=== PATIENT | female | born 1970 | race American Indian/Alaskan Native ===

== ENCOUNTER 2017-11-15 10:22 | Observation (INO) | payer OTHER ==
[2017-11-14 13:27] LABS: Mean Corpuscular HGB Conc 30 % (30-34); Platelet Count 250 K/mm3 (140-440); Red Blood Count 5.59 M/mm3 (3.65-5.03); White Blood Count 6.9 K/mm3 (4.5-11.0)
[2017-11-14 13:41] LABS: Hematocrit 36.4 % (30.3-42.9); Hemoglobin 10.8 gm/dl (10.1-14.3); Mean Corpuscular Hemoglobin 19 pg (28-32); Mean Corpuscular Volume 65 fl (79-97); Red Cell Distribution Width 27.7 % (13.2-15.2)
--- NOTE | 2017-11-15 11:08 | History and Physical Report ---
History of Present Illness Date of examination: 11/15/17 Date of admission: 11/15/2017 Chief complaint: heavy menses and pain History of present illness: 47y/o with symptomatic uterine fibroids and pelvic pain. The patient reports worsening of symptoms. She complains of heavy bleeding with menses and pain. Treatment options were discussed with patient. 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 Social history: - Obstetrical History : 7 Para: 4 Hx # Term Pregnancies: 4 Number of Pregnancies: 0 Spontaneous Abortions: 3 Induced : 0 Number of Living Children: 4 Medications and Allergies Allergies Allergy/AdvReac Type Severity Reaction Status Date / Time No Known Allergies Allergy Unverified 11/14/17 12:52 Home Medications Medication Instructions Recorded Confirmed Last Taken Type Biotin 10,000 mcg PO DAILY 11/14/17 11/14/17 Unknown History Ferrous Sulfate [Feosol 325 MG tab] 1 tab PO DAILY 11/14/17 11/14/17 Unknown History Folic Acid [Folvite] 1 mg PO DAILY 11/14/17 11/14/17 Unknown History Losartan Potassium [Losartan 50 mg PO DAILY 11/14/17 11/14/17 Unknown History Potassium] [place]-3 Fatty Acids/Fish Oil [Fish 1,000 mg PO DAILY 11/14/17 11/14/17 Unknown History Oil] Ubidecarenone [Coenzyme Q-10] 1 cap PO DAILY 11/14/17 11/14/17 Unknown History Review of Systems All systems: negative Genitourinary: vaginal bleeding, pelvic pain - Vital Signs Vital signs: Vital Signs Temp Pulse Resp BP 98.5 F 80 18 130/84 11/14/17 12:45 11/14/17 12:45 11/14/17 12:45 11/14/17 12:45 Temp Pulse Resp BP Pulse Ox 98.5 F 80 18 130/84 11/14/17 12:45 11/14/17 12:45 11/14/17 12:45 11/14/17 12:45 - Physical Exam Breasts: Positive: deferred Cardiovascular: Regular rate Lungs: Positive: Clear to auscultation Abdomen: Positive: normal appearance Results Result Diagrams: 11/14/17 13:00 Abnormal lab results 11/14/17 Range/Units 13:00 RBC 5.59 H (3.65-5.03) M/mm3 MCV 65 L (79-97) fl MCH 19 L (28-32) pg RDW 27.7 H (13.2-15.2) % All other labs normal. Assessment and Plan - Patient Problems (1) Leiomyoma Current Visit: Yes Status: Acute Plan to address problem: scheduled for a robotic hysterectomy (2) Menorrhagia Current Visit: Yes Status: Acute (3) Dysmenorrhea Current Visit: Yes Status: Acute
[2017-11-15] MEDS ORDERED: DECADRON IV SCH (11:47)
[2017-11-15] MEDS ORDERED: SUBLIMAZE IV ONE (11:47)
[2017-11-15] MEDS ORDERED: LACTATED RINGERS 1,000 ML IV SCH (12:00)
[2017-11-15] MEDS ORDERED: PEPCID PO NR (12:00)
[2017-11-15] MEDS ORDERED: NEURONTIN PO NR (12:00)
[2017-11-15] MEDS ORDERED: MARCAINE 0.5% INFILTRATI NR (12:00)
[2017-11-15] MEDS ORDERED: MARCAINE 0.5% 60 ML INFILTRATI ONE (12:18)
[2017-11-15] MEDS ORDERED: ADRENALIN ONE (12:18)
[2017-11-15] MEDS ORDERED: ZOFRAN IV PRN (12:29)
[2017-11-15] MEDS ORDERED: MORPHINE IV PRN (12:29)
--- NOTE | 2017-11-15 12:29 | Anesthesia Day of Surgery ---
Anesthesia Day of Surgery - Day of Surgery Patient Examined: Yes Patient H&P Reviewed: Yes Patient is NPO: Yes
--- NOTE | 2017-11-15 12:29 | Anesthesia Consultation ---
Anesthesia Consult and Med Hx Date of service: 11/15/17 - Airway Anesthetic Teeth Evaluation: Good ROM Head & Neck: Adequate Mental/Hyoid Distance: Adequate Mallampati Class: Class II Intubation Access Assessment: Probably Good - Pulmonary Exam CTA: Yes - Cardiac Exam Cardiac Exam: RRR - Pre-Operative Health Status ASA Pre-Surgery Classification: ASA2 Proposed Anesthetic Plan: General Nerve Block: TAP - Cardiovascular System Hx Hypertension: Yes (since 2011) - Central Nervous System Hx Psychiatric Problems: No - Hematic Hx Anemia: Yes - Other Systems Hx Cancer: No
[2017-11-15] MEDS: VERSED IV PRN ×2 (12:41→12:50)
[2017-11-15] MEDS ORDERED: GELFOAM POWDER 1GM MM ONE (13:57)
[2017-11-15] MEDS ORDERED: THROMBIN (BOVINE) TP ONE (13:57)
[2017-11-15] MEDS ORDERED: ANCEF/STERILE WATER 2 GM/20 ML 2 GM/20 ML SYRINGE IV SCH (14:00)
[2017-11-15] MEDS ORDERED: DIPRIVAN 10 MG/ML IV ONE (14:30)
[2017-11-15] MEDS ORDERED: DILAUDID ONE (14:30)
[2017-11-15] MEDS ORDERED: ZOFRAN ONE (14:30)
[2017-11-15] MEDS ORDERED: XYLOCAINE MPF 2% ONE (14:30)
[2017-11-15] MEDS ORDERED: DECADRON ONE (14:30)
[2017-11-15] MEDS ORDERED: ROBINUL ONE (14:30)
[2017-11-15] MEDS ORDERED: ZEMURON IV ONE (14:30)
[2017-11-15] MEDS ORDERED: NEOSTIGMINE ONE (14:30)
[2017-11-15] MEDS ORDERED: NEOSPORIN GU IR ONE (15:10)
[2017-11-15] MEDS ORDERED: NARCAN 0.4 MG/1 ML IV PRN (17:18)
[2017-11-15] MEDS ORDERED: PERCOCET 5/325 PO PRN (17:19)
[2017-11-15] MEDS ORDERED: MILK OF MAGNESIA PO PRN (17:19)
[2017-11-15] MEDS ORDERED: MOTRIN PO PRN (17:19)
[2017-11-15] MEDS ORDERED: TYLENOL PO PRN (17:19)
--- NOTE | 2017-11-15 17:28 | Operative Report ---
Operative Report Operative Report: Date of surgery: 11/15/2017 Preoperative diagnoses: Leiomyomas; menorrhagia; dysmenorrhea Postoperative diagnoses: Same as above Procedure: Robotic hysterectomy; bilateral salpingectomy; left oophorectomy Surgeon: Tracey Ravi M.D. Medical Numerical Control Operator: Ricarda Boyce Anesthesia: Gen. endotracheal anesthesia Estimated blood loss: 200 mL Pathology: Uterus, cervix, leiomyomas, left ovary, bilateral tubes Indication: 47-year-old with a history of symptomatic uterine fibroids and a history of ovarian cyst. The patient elected to undergo definitive surgical management of her symptoms. Procedure: The patient was taken to the operating room and given general endotracheal anesthesia without complication. She is prepped and draped in a normal sterile fashion. A bivalve speculum was placed in the patient's vagina and a single- tooth tenaculum placed on the anterior lip of the cervix. The uterus was sounded with the uterine sound. A orderbolt uterine manipulator was placed in the bivalve speculum was then removed. Attention was then turned to the patient's abdomen where a millimeter supra umbilical skin incision was then made. A Veress needle was placed and peritoneal entry was verified water-filled syringe. Insufflation of the peritoneal cavity was performed with CO2 gas. The 12 mm trocar was then placed under direct visualization. An additional 8 mm trocar was placed on the patient's left and right lateral side just opposite of the supraumbilical trocar. An additional 5 mm right lateral trocar was then placed as the accessory port. The patient was then placed in steep Trendelenburg. The da Attila robot was then engaged. A fenestrated forcep was placed in arm 2 and a vessel sealer was placed in arm 1. The surgeon then transferred to the surgical console. General survey of the abdomen and pelvis revealed multiple uterine fibroids causing enlargement of the uterus. There was also findings of the left ovarian cyst. The mesosalpinx was then isolated on the right. The vessel sealer was used to coagulate the mesosalpinx which was then transected. The tube was transected from the ovary. The tubo-ovarian ligament was then coagulated and transected. The round ligament was then coagulated and transected also. The vesicouterine peritoneum was then entered from the patient's right side. The uterine vessels were then coagulated with the vessel sealer. The vessels were then transected . Attention was then turned to the patient's left side where the tubo-ovarian ligament and mesosalpinx were again isolated coagulated and transected. In the process of transecting the mesosalpinx it was noted that the blood supply to the ovary had been compromise. A left oophorectomy was then performed. The vesical peritoneum was then entered from the left and joined in the midline. Peritoneum was reflected off of the lower uterine segment. Uterine vessels were then coagulated and then transected. The blood supply to the uterus was adequately contained. Secondary to the large state of the uterus it could not be adequately transferred through the vagina without decompression. Myomectomy was performed to removed multiple fibroids in order to decompress the uterus. The serosa of the uterus was transected with the monopolar scissors. A posterior colpotomy was made. The V care ring was visualized. Posterior colpotomy was created with the monopolar scissors. The incision was continued circumferentially until anterior colpotomy was made. The cervix and uterus were amputated from the vaginal cuff. The uterus was then removed along with the tubes bilaterally, leiomyomas, and left ovary through the vagina and a warm laparotomy sponge was placed and maintain the pneumoperitoneum. The vaginal cuff was then closed in a running fashion with V lock suture. Irrigation of the pelvis was performed. Gelfoam with thrombin was applied to the incision. The supraumbilical 12 mm trocar site was closed with the Mario Nicole device. The skin was then reapproximated with 4-0 Monocryl. The tissue was sent to pathology which included the cervix and uterus. The patient was then successfully extubated. She was then taken to the recovery room in stable condition. All sponge laps and needle counts were correct x2.
[2017-11-15] MEDS ORDERED: D5LR 1,000 ML IV SCH (18:00)
[2017-11-15] MEDS ORDERED: MORPHINE PCA 30MG/30ML IV SCH (18:00)
[2017-11-15] MEDS ORDERED: LACTATED RINGERS 1,000 ML ONE (19:15)
--- NOTE | 2017-11-15 20:15 | Post Anesthesia Evaluation ---
- Post Anesthesia Evaluation Patient Participated: Yes Airway Patent: Yes Stable Respiratory Function: Yes Temp > 96.8F: Yes Pain Manageable: Yes Adequeate Hydration: Yes Anesthesia Complications: No
[2017-11-15] MEDS: TORADOL IV SCH (23:40)
[2017-11-16] MEDS: TORADOL IV SCH ×2 (05:05→11:38)
[2017-11-16 06:32] LABS: Hematocrit 33.6 % (30.3-42.9); Hemoglobin 10.4 gm/dl (10.1-14.3)
--- NOTE | 2017-11-16 08:45 | Progress Note ---
Assessment and Plan - Patient Problems (1) Leiomyoma Current Visit: Yes Status: Acute Plan to address problem: patient doing well discharge home once tolerates regular diet (2) Menorrhagia Current Visit: Yes Status: Acute (3) Dysmenorrhea Current Visit: Yes Status: Acute Subjective - Subjective Date of service: 11/16/17 Interval history: Patient without complaints. Tolerating clear diet. Pain well controlled. Patient reports: appetite normal, voiding normally, pain well controlled Objective - Vital Signs Latest vital signs: Vital Signs Temp Pulse Resp BP BP Pulse Ox 11/16/17 04:15 98.6 F 78 16 114/69 11/16/17 00:00 98.6 F 78 16 121/64 11/15/17 19:40 98.6 F 82 16 131/80 11/15/17 18:45 93 H 20 100 11/15/17 18:30 62 21 157/94 100 11/15/17 18:15 94 H 20 151/92 100 11/15/17 18:00 96 H 20 156/97 100 11/15/17 17:55 98 H 19 158/90 9 L 11/15/17 17:50 92 H 15 145/97 100 11/15/17 17:46 98.2 F 98 H 13 136/83 99 11/15/17 13:30 102 H 20 130/78 99 11/15/17 13:25 102 H 20 136/86 99 11/15/17 13:20 103 H 20 140/80 99 11/15/17 13:15 105 H 20 138/78 100 11/15/17 13:10 104 H 20 140/83 100 11/15/17 13:05 105 H 20 147/84 100 11/15/17 12:45 103 H 20 139/86 100 11/15/17 12:40 91 H 20 145/89 100 11/15/17 11:20 99.4 F 96 H 18 141/81 99 Intake and Output 11/15/17 11/16/17 11/16/17 22:59 06:59 14:59 Intake Total 600 300 Output Total 175 1700 Balance 425 -1400 Intake: IV 300 Intake, Free Water 300 300 Output: Urine 175 1700 Indwelling Catheter 1700 Other: Total, Output Amount 800 Voiding Method Indwelling Catheter - Exam Abdomen: Present: normal appearance, soft Incision: Present: dry
--- NOTE | 2017-11-16 08:46 | Progress Note ---
Subjective Date of service: 11/16/17 Interval history: 1st POD after robotic hysterectomy Patient is in the bed, comfortable. Pain is well controlled with pain meds. Ambulated well. No nausea or vomiting. No anesthesia complications Objective - Constitutional Vitals: Vital Signs - 12hr 11/16/17 11/16/17 00:00 04:15 Temperature 98.6 F 98.6 F Pulse Rate 78 78 Respiratory 16 16 Rate Blood Pressure 121/64 114/69 [Left] - Labs CBC & Chem 7: 11/16/17 06:05
--- NOTE | 2017-11-16 08:47 | Discharge Summary ---
Providers - Providers Date of Admission: 11/15/17 17:19 Date of discharge: 11/16/17 Attending physician: ROGER MERA Primary care physician: SONYA TRACEY Hospitalization Reason for admission: other (Uterine fibroids) Procedure: other (robotic hysterectomy) Discharge diagnosis: other (Uterine fibroids) Hospital course: Patient admitted the day of surgery and underwent a robotic hysterectomy for uterine fibroids. Please see operative report. Postoperative course uneventful. Condition at discharge: Good Disposition: DC-01 TO HOME OR SELFCARE - Discharge Diagnoses (1) Leiomyoma Status: Acute (2) Menorrhagia Status: Acute (3) Dysmenorrhea Status: Acute Plan - Discharge Medications Prescriptions: Ibuprofen [Motrin] 800 mg PO Q8HR PRN #60 tablet PRN Reason: Pain Oxycodone HCl/Acetaminophen [Percocet 7.5/325 mg] 1 each PO Q6HR PRN #45 tablet PRN Reason: Pain - Provider Discharge Summary Activity: no sex for 6 weeks, no heavy lifting 4 weeks, no strenuous exercise Diet: routine Instructions: routine Additional instructions: [] Smoking cessation referral if applicable(refer to patient education folder for contact #) [] Refer to [facility] Booklet Call your doctor immediately for: * Fever > 100.5 * Heavy vaginal bleeding ( >1 pad per hour) * Severe persistent headache * Shortness of breath * Reddened, hot, painful area to leg or breast * Drainage or odor from incision. * Keep incision clean and dry at all times and follow doctor's instructions regarding bathing/showering followup in [address] Fitzgerald - Follow up plan
[2017-11-16 11:16] VITALS: BP 147/86
== END 2017-11-16 12:27 | disposition home or self-care (01) ==
LOC: OR 10:22 → OB 17:19
PROVIDERS: ADMIT Obstetrics & Gynecology; ATTEND Obstetrics & Gynecology
DX: D25.9 Leiomyoma of uterus, unspecified (principal); N92.0 Excessive and frequent menstruation with regular cycle; N94.6 Dysmenorrhea, unspecified; I10 Essential (primary) hypertension
CPT/HCPCS: 36415; 58571; 64450; 84703; 85014; 85018; 85025; 86850; 86900; 86901; 88307; 96374; 96375; 96376; A4649; G0378; J0171; J0690; J1100; J1170; J1885; J2250; J2270; J2405; J2704; J2710; J3010; J7120; J7121; S2900

== ENCOUNTER 2017-12-26 11:06 | Outpatient (CLI) | payer OTHER ==
--- NOTE | 2017-12-26 13:28 | Mammography Report ---
BILATERAL DIGITAL SCREENING MAMMOGRAM with CAD: 12/26/17 11:06:00 CLINICAL: Baseline screening. FINDINGS: The breasts are heterogeneously dense, which may obscure small masses. No mass, architectural distortion or suspicious calcifications. IMPRESSION: No mammographic evidence of malignancy. BI-RADS CATEGORY: 1 - - Negative RECOMMENDATION: Routine mammographic screening in one year. COMMENT: Patient follow-up letters are generated by our [employer] application.
== END 2017-12-26 11:07 | disposition home or self-care (01) ==
LOC: MAMMO 11:06
PROVIDERS: ATTEND Obstetrics & Gynecology
DX: Z12.31 Encounter for screening mammogram for malignant neoplasm of breast (principal)
CPT/HCPCS: 77067